=== PATIENT | female | born 1965 | race Caucasian/White ===

== ENCOUNTER 2020-07-13 16:30 | Emergency (ER) | payer SELFPAY ==
[~2020-07-13] VITALS: Ht 157.5 cm; Wt 81.6 kg
[2020-07-13 16:33] VITALS: BP 90/58
--- NOTE | 2020-07-13 16:55 | NUR ---
DROPLET PRECAUTION PLACED.
== END 2020-07-13 17:37 | disposition home or self-care (01) ==
LOC: ED 17:00
DX: R50.9 Fever, unspecified (principal); Z20.822 Contact with and (suspected) exposure to COVID-19
CPT/HCPCS: 99283; U0003

== ENCOUNTER 2020-12-19 10:06 | Outpatient (CLI) | payer OTHER | END 2020-12-19 23:59 | disposition home or self-care (01) | LOC: RAD 10:06 | PROVIDERS: ATTEND Otolaryngology | DX: K44.9 Diaphragmatic hernia without obstruction or gangrene (principal); R13.10 Dysphagia, unspecified | CPT/HCPCS: 74230 ==